=== PATIENT | female | born 1970 | race Caucasian/White ===

== ENCOUNTER 2018-01-04 13:17 | Emergency (ER) | payer OTHER ==
[~2018-01-04] VITALS: Ht 175.3 cm; Wt 113.4 kg
[2018-01-04 13:24] VITALS: BP 168/117
--- NOTE | 2018-01-04 13:30 | NUR ---
PATIENT PRESENTS TO ED WITH LEFT LEG SWELLING AND ERYTHEMA. PATIENT REPORTS BEING SEEN AT [facility] 2 WEEKS AGO FOR CELLULITIS. PATIENT STATES SHE WAS GIVEN ABX BUT NO RELIEF
[2018-01-04] MEDS ORDERED: ceFAZolin 1,000 MG VIAL ONE (14:09)
--- NOTE | 2018-01-04 15:26 | NUR ---
PATIENT DISCAHRGED BY DR MALONEY. RX OF KEFLEX GIVEN
[2018-01-04 15:31] VITALS: BP 168/117
== END 2018-01-04 15:26 | disposition home or self-care (01) ==
LOC: MED 13:17
DX: L03.116 Cellulitis of left lower limb (principal); Z90.49 Acquired absence of other specified parts of digestive tract
CPT/HCPCS: 96365; 99283; J0690